=== PATIENT | female | born 1980 ===

== ENCOUNTER 2020-06-25 13:39 | Outpatient (CLI) | payer OTHER ==
[2020-06-25 16:00] LABS: Basophils % (Auto) 0.4 % (0.0-1.8); Eosinophils % (Auto) 0.6 % (0.0-4.3); Hematocrit 31.9 % (30.3-42.9); Hemoglobin 10.7 gm/dl (10.1-14.3); Lymphocytes % (Auto) 19.8 % (13.4-35.0); Mean Corpuscular HGB Conc 34 % (30-34); Mean Corpuscular Volume 91 fl (79-97); Monocytes # (Auto) 0.4 K/mm3 (0.0-0.8); Monocytes % (Auto) 7.3 % (0.0-7.3); Platelet Count 110 K/mm3 (140-440); Red Blood Count 3.53 M/mm3 (3.65-5.03); Red Cell Distribution Width 15.5 % (13.2-15.2)
[2020-06-25 16:19] LABS: Alanine Aminotransferase 7 units/L (7-56); Albumin 3.4 g/dL (3.9-5); Blood Urea Nitrogen 7 mg/dL (7-17); Calcium 9.1 mg/dL (8.4-10.2); Hemolysis Index 25; Uric Acid 4.4 mg/dL (3.5-7.6)
[2020-06-25 16:21] LABS: BUN/Creatinine Ratio 18
[2020-06-25 16:48] LABS: Amphetamine Screen,Urine PRESUMPTIVE NEGATIVE; Benzodiazepines Screen,Urine PRESUMPTIVE NEGATIVE; Bilirubin,Urine NEG (Negative); Blood,Urine NEG (Negative); Cannabinoid Screen,Urine PRESUMPTIVE NEGATIVE; Cocaine Screen,Urine PRESUMPTIVE NEGATIVE; Color,Urine Yellow (Yellow); Methadone Screen,Urine PRESUMPTIVE NEGATIVE; Mucus,Urine 3+ /HPF; Opiate Screen,Urine PRESUMPTIVE NEGATIVE; Protein,Urine <15 mg/dL mg/dL (Negative); Urobilinogen,Urine < 2.0 mg/dL (<2.0)
--- NOTE | 2020-06-25 17:43 | Ultrasound Report ---
ULTRASOUND OBSTETRIC LIMITED ULTRASOUND BIOPHYSICAL PROFILE INDICATION / CLINICAL INFORMATION: BPP. Clinical Gestational Age (GA): 39 weeks. 6 days COMPARISON: None available. FINDINGS: BREATHING MOVEMENT = 2 GROSS BODY MOVEMENT = 2 TONE = 2 QUALITATIVE AMNIOTIC FLUID VOLUME = 2 TOTAL BIOPHYSICAL SCORE = 8/8 HEART RATE (beats per minute): 137 AMNIOTIC FLUID INDEX (cm) = 10.9 (normal = 7-24 cm) PRESENTATION: Cephalic. ADDITIONAL FINDINGS: None. IMPRESSION: 1. Biophysical Score = 8/8 Signer Name: Qamar Perez MD Signed: 06/25/2020 5:39 PM Workstation Name: [id number]
[2020-06-25 17:54] VITALS: BP 113/67
--- NOTE | 2020-06-25 20:01 | Event Note ---
Date: 06/25/20 at 39 weeks, 5 days gestation presents to rule out labor. Gets care at [facility]. 2 previous term vaginal deliveries. Reports mild contractions starting yesterday. Denies vaginal bleeding. Reports a mucous discharge and wants to make sure her water is not leaking. Reports decreased movement today. Mild irregular contractions noted per monitor; patient denies pain. Speculum exam: no pooling, no bleeding noted; thick white discharge noted. Negative fern test. Reactive NST/category 1 heart rate tracing. BPP 8/8. CASH 10.9 cm. Elda pad dry. SVE 1.5/thick/high/posterior. After instructing patient re: how to count movements, patient states she is getting at least 10 movements in 2 hours (observed patient for several hours and had her count movements while in triage area). Patient states she now feels good movement. 2 borderline BPs; rest of BPs WNL. Platelet count 110,000. AST/ALT normal. Urine trace protein. No edema, no headache, no abdominal pain, no visual disturbance, no N/V. Consulted with Dr. Dominguez re: this patient and informed him of all of the above. Discussed BP readings, US results, pt. complaints and all lab results with MD. MD orders to discharge patient home today and have her follow up in OB clinic on Wednesday 06/27. Discussed this plan with patient and patient is in agreement with plan. Reinforced with patient how to count movements. Instructed patient to return right away if any decrease in movement, regular contractions, LOF, VB, headache, swelling, visual disturbance, abdominal pain, or any other problems. Advised pt. to go to [facility] on Saturday06/27/2020 per MD recommendation. Patient voiced understanding of all instructions.
== END 2020-06-25 20:22 | disposition home or self-care (01) ==
LOC: TRG 13:39 → APU 13:41 → TRG 20:22
PROVIDERS: ATTEND Obstetrics & Gynecology
DX: O42.92 Full-term premature rupture of membranes, unspecified as to length of time between rupture and onset of labor (principal); Z3A.39 39 weeks gestation of pregnancy
CPT/HCPCS: 36415; 59025; 76815; 76819; 80053; 80307; 81001; 83615; 84550; 85025

== ENCOUNTER 2020-06-27 19:11 | Inpatient (IN) | payer OTHER ==
[2020-06-27] MEDS ORDERED: BUTORPHANOL 2 MG/1 ML INJ IV PRN (23:20)
[2020-06-27] MEDS ORDERED: TERBUTALINE 1 MG/1 ML INJ SUB-Q PRN (23:20)
[2020-06-27] MEDS ORDERED: ePHEDrine SULFATE 50 MG/1 ML INJ IV PRN (23:20)
[2020-06-27] MEDS ORDERED: AMPICILLIN/NS 2 GM/100 ML 2 GM/100 ML BAG IV ONE (23:20)
[2020-06-27] MEDS ORDERED: LIDOCAINE (2%) 20 MG/1 ML VIAL 20 ML MDV INFILTRATI ONE (23:20)
[2020-06-27] MEDS ORDERED: ACETAMINOPHEN 325 MG TAB PO PRN (23:20)
[2020-06-27] MEDS ORDERED: MINERAL OIL 30 ML ORAL LIQD PO PRN (23:20)
[2020-06-27] MEDS ORDERED: LACTATED RINGERS 1,000 ML IV SCH (23:45)
[2020-06-27] MEDS ORDERED: OXYTOCIN DRIP 30 UNITS/500 ML BAG IV SCH (23:45)
[2020-06-27] MEDS ORDERED: OXYTOCIN 20 UNIT/1000ML DRIP 20 UNITS/1,000 ML BAG IV SCH (23:45)
--- NOTE | 2020-06-28 00:31 | Ultrasound Report ---
LIMITED OB ULTRASOUND WITH BIOPHYSICAL PROFILE HISTORY: Evaluate CASH and well-being. FINDINGS: A single viable intrauterine in the cephalic position has heart tones of 13 2 bpm. Amniotic fluid index is at the lower limits of normal at 7.9 cm. Biophysical profile is normal at 8/8. IMPRESSION: 1. Amniotic fluid index lower limits of normal. 2. Biophysical profile normal. Signer Name: Guillermo Delgado MD Signed: 06/28/2020 12:27 AM Workstation Name: [id number]
[2020-06-28 00:38] LABS: Hematocrit 31.8 % (30.3-42.9); Hemoglobin 11.1 gm/dl (10.1-14.3); Mean Corpuscular HGB Conc 35 % (30-34); Mean Corpuscular Volume 88 fl (79-97); Platelet Count 106 K/mm3 (140-440)
[2020-06-28] MEDS ORDERED: DEXMEDETOMIDINE 200 MCG/2 ML VIAL IV ONE (02:14)
--- NOTE | 2020-06-28 02:32 | Anesthesia Consultation ---
Anesthesia Consult and Med Hx Date of service: 06/28/20 - Airway Anesthetic Teeth Evaluation: Good ROM Head & Neck: Adequate Mental/Hyoid Distance: Adequate Mallampati Class: Class II Intubation Access Assessment: Probably Good - Pulmonary Exam CTA: Yes - Cardiac Exam Cardiac Exam: RRR - Pre-Operative Health Status ASA Pre-Surgery Classification: ASA2 Proposed Anesthetic Plan: Epidural - Pulmonary Hx Asthma: No - Cardiovascular System Hx Hypertension: No - Central Nervous System Hx Seizures: No Hx Psychiatric Problems: No - Endocrine Hx Renal Disease: No Hx Hypothyroidism: No Hx Hyperthyroidism: No - Hematic Hx Anemia: No Hx Sickle Cell Disease: No - Other Systems Hx Alcohol Use: No
--- NOTE | 2020-06-28 02:33 | Progress Note ---
Labor Epidural - Labor Epidural Start Time: 02:20 Stop Time: 02:24 Performed by:: YANNA KRISHNAMURTHY Procedure: Patient is requesting epidural for labor pain. H&P, and labs reviewed. Procedure explained, questions answered, consent obtained. Patient in sitting position with blood pressure cuff and pulse ox on and working. Timeout performed immediately before start of procedure. Sterile betadine prep/drape. 3 mL 1% lidocaine skin wheal at L[3]-L[4]. 18-gauge Touhy epidural needle advanced to [id number] with saline at [7] cm. 27-gauge spinal needle advanced until clear, free-flowing CSF. Intrathecal dexmedetomidine [5] mcg administered and needle removed. Epidural catheter advanced to [12] cm, negative aspiration for blood and csf, negative test dose 3 ml 1.5% lidocaine with epinephrine. Sterile steri-strips and tegaderm applied, followed by tape reinforcement. Patient tolerated procedure well.
[2020-06-28] MEDS ORDERED: NALOXONE 2 MG/2 ML INJ IV PRN (02:34)
[2020-06-28] MEDS ORDERED: ePHEDrine SULFATE 50 MG/1 ML INJ IV PRN (02:34)
[2020-06-28] MEDS: fentaNYL-BUPIV 2 MCG/ML-0.125% 200 MCG/100 ML BAG EPIDURAL SCH ×2 (03:24→11:56)
[2020-06-28] MEDS ORDERED: AMPICILLIN/NS 1 GM/50 ML 1 GM/50 ML BAG IV SCH (05:00)
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
[2020-06-28 10:14] LABS: C-Reactive Protein 0.4 mg/dL (0.00-1.30)
[2020-06-28] MEDS ORDERED: PROMETHAZINE 25 MG RECT SUPP PR PRN (14:35)
[2020-06-28] MEDS ORDERED: WITCH HAZEL/ GLYCERIN PAD TP PRN (14:35)
[2020-06-28] MEDS ORDERED: PROMETHAZINE 25 MG TAB PO PRN (14:35)
[2020-06-28] MEDS ORDERED: ONDANSETRON 4 MG/2 ML INJ IV PRN (14:35)
[2020-06-28] MEDS ORDERED: diphenhydrAMINE 25 MG CAP PO PRN (14:35)
[2020-06-28] MEDS ORDERED: LANOLIN/ZINC/DIMETHICONE (LANSINOH) 7 GM TP PRN (14:35)
[2020-06-28] MEDS ORDERED: MAGNESIUM HYDROXIDE (MOM) ORAL LIQD UDC PO PRN (14:35)
--- NOTE | 2020-06-28 14:46 | Procedure Note ---
OB Delivery Note - Delivery Date of Delivery: 06/28/20 (2709) Surgeon: TONE HUGGINS (CNM) Estimated blood loss: <100cc - Vaginal Delivery presentation: vertex Delivery position: OA (EDWIN) Delivery induction: oxytocin Delivery augmentation: rupture of membranes (SROM, 06/27/2020 @ 0700) Delivery monitor: external FHT, external uterine Route of delivery: Delivery placenta: spontaneous (1344) Delivery cord: nuchal cord (x 1, reduced at perineum), 3 umbilical vessels Episiotomy: none Delivery laceration: 1st degree (hemastasis maintained, no repair required) Delivery comments: of viable, crying female infant, placed directly on maternal abdomen after reduction of nuchal cord x 1 at perineum. Cord double clamped, cut by FOB after cessation of pulsation. Placenta spontaneously delivered, reynolds, disposed per hospital policy. Uterus firm @ U-2. Perineum with 1st degree laceration, no repair required, hemostasis maintained. Mother and baby safe, stable and left in care of RN. - A at 1 minute: 9 at 5 minutes: 9 Gender: Female (Weight: 3619gms (8lbs) 19.5 inches)
--- NOTE | 2020-06-28 19:28 | Post Anesthesia Evaluation ---
- Post Anesthesia Evaluation Patient Participated: Yes Airway Patent: Yes Stable Respiratory Function: Yes Nausea/Vomiting: No Temp > 96.8F: Yes Pain Manageable: Yes Adequeate Hydration: Yes Anesthesia Complications: No Block Receding Appropriately: Yes
[2020-06-29 01:47] LABS: Hematocrit 27.2 % (30.3-42.9); Hemoglobin 9.3 gm/dl (10.1-14.3)
[2020-06-29] MEDS: oxyCODONE /ACETAMINOPHEN 5-325MG TAB PO PRN ×2 (02:54→22:31)
[2020-06-29] MEDS: IBUPROFEN 600 MG TAB PO SCH ×2 (02:55→10:11)
--- NOTE | 2020-06-29 09:56 | Progress Note ---
Assessment and Plan A: PP Day #1 Asymtomatic Anemia P: Follow Routine Orders Infed 100mg IM x 1 dose D/C home in the AM RTO in 6 Weeks Subjective - Subjective Date of service: 06/29/20 Patient reports: appetite normal, voiding normally, pain well controlled, flatus, ambulating normally [place]: doing well, bottle feeding (and ) Objective - Vital Signs Latest vital signs: Vital Signs Temp Pulse Resp BP BP Pulse Ox 06/29/20 08:08 98.0 F 20 131/81 06/29/20 04:00 98.8 F 64 16 118/72 06/29/20 00:30 98.6 F 77 16 104/78 06/28/20 20:07 98.0 F 72 18 123/72 96 06/28/20 16:26 97.9 F 78 16 125/70 96 06/28/20 15:54 75 159/84 06/28/20 15:39 78 151/82 06/28/20 15:24 74 151/71 06/28/20 15:08 67 150/76 06/28/20 14:53 63 147/73 06/28/20 14:39 79 153/79 06/28/20 14:08 76 136/69 06/28/20 13:53 67 132/68 06/28/20 13:39 88 190/89 06/28/20 13:21 74 99 06/28/20 13:16 74 98 06/28/20 13:11 68 97 06/28/20 13:08 71 124/77 06/28/20 13:06 66 98 06/28/20 13:01 64 98 06/28/20 12:56 57 L 99 06/28/20 12:51 59 L 98 06/28/20 12:46 76 98 06/28/20 12:41 65 98 06/28/20 12:38 56 L 138/77 06/28/20 12:36 63 99 06/28/20 12:31 63 98 06/28/20 12:26 66 98 06/28/20 12:21 65 98 06/28/20 12:16 64 99 06/28/20 12:11 64 98 06/28/20 12:08 58 L 137/80 06/28/20 12:06 57 L 98 06/28/20 12:03 64 120/87 06/28/20 12:02 98 F 61 18 120/87 98 06/28/20 12:01 60 98 06/28/20 11:56 55 L 98 06/28/20 11:51 59 L 98 06/28/20 11:46 60 97 06/28/20 11:41 57 L 97 06/28/20 11:38 57 L 124/74 06/28/20 11:36 57 L 96 06/28/20 11:31 58 L 97 06/28/20 11:26 59 L 97 06/28/20 11:21 63 97 06/28/20 11:16 73 97 06/28/20 11:14 54 L 139/69 06/28/20 11:11 57 L 97 06/28/20 11:07 60 118/68 06/28/20 11:06 55 L 97 06/28/20 11:01 96 H 96 06/28/20 10:56 86 96 06/28/20 10:53 68 94 06/28/20 10:51 58 L 95 06/28/20 10:46 64 97 06/28/20 10:41 84 97 06/28/20 10:37 59 L 119/71 06/28/20 10:36 56 L 97 06/28/20 10:35 59 L 94 06/28/20 10:31 74 97 06/28/20 10:26 60 97 06/28/20 10:21 84 97 06/28/20 10:16 57 L 95 06/28/20 10:11 63 97 06/28/20 10:08 56 L 130/75 06/28/20 10:06 63 97 06/28/20 10:01 70 98 06/28/20 09:59 97.9 F 72 17 107/66 107/66 98 06/28/20 09:56 57 L 99 Intake and Output 06/28/20 06/29/20 06/29/20 22:59 06:59 14:59 Intake Total 480 Output Total 800 600 Balance -800 -120 Intake: Oral 480 Output: Urine 800 600 Void 800 600 Other: Total, Intake Amount 240 Total, Output Amount 800 600 # Voids Void 1 1 - Exam Breasts: Present: normal Cardiovascular: Present: Regular rate Lungs: Present: Clear to auscultation, Normal air movement Abdomen: Present: normal appearance, soft, normal bowel sounds Uterus: Present: normal, firm, fundal height below umbilicus Extremities: Present: normal - Labs Labs: Abnormal lab results 06/28/20 06/28/20 06/29/20 Range/Units 09:25 09:25 00:47 Hgb 9.3 L (10.1-14.3) gm/dl Hct 27.2 L (30.3-42.9) % D-Dimer 1238.95 H (0-234) ng/mlDDU Lactate Dehydrogenase 260 H (91-180) units/L
--- NOTE | 2020-06-29 09:58 | Discharge Summary ---
Providers - Providers Date of Admission: 06/28/20 14:35 Date of discharge: 06/30/20 Attending physician: DAINA BULLOCK MD Primary care physician: DAINA BULLOCK MD Hospitalization Reason for admission: rupture of membranes Delivery: Episiotomy: none Laceration: 1st degree Other procedures: none complications: none Discharge diagnosis: IUP at term delivered baby: female Condition at discharge: Good Disposition: DC-01 TO HOME OR SELFCARE Plan - Provider Discharge Summary Activity: routine, no sex for 6 weeks, no heavy lifting 4 weeks, no strenuous exercise Diet: routine Instructions: routine Additional instructions: [] Smoking cessation referral if applicable(refer to patient education folder for contact #) [] Refer to [facility] Booklet Call your doctor immediately for: * Fever > 100.5 * Heavy vaginal bleeding ( >1 pad per hour) * Severe persistent headache * Shortness of breath * Reddened, hot, painful area to leg or breast * Drainage or odor from incision. * Keep incision clean and dry at all times and follow doctor's instructions regarding bathing/showering - Follow up plan Follow up: DAINA BULLOCK MD [Primary Care Provider] - 6 Weeks
[2020-06-29] MEDS ORDERED: IRON DEXTRAN COMPLEX 100 MG/2 ML INJ IM ONE (10:30)
[2020-06-30] MEDS: IBUPROFEN 600 MG TAB PO SCH (10:07)
[2020-06-30 13:15] VITALS: BP 130/83
== END 2020-06-30 13:30 | disposition home or self-care (01) | DRG 807 ==
LOC: TRG 19:11 → APU 19:53 → LD 23:20 → TRG 23:20 → UNDOADMIN 23:20 → LD 06-28 14:35 → OB 06-28 16:54
PROVIDERS: ADMIT Obstetrics & Gynecology; ATTEND Obstetrics & Gynecology
PROC: 10E0XZZ Delivery of Products of Conception, External Approach (ICD-10-PCS; principal; 2020-06-28)
PROC: 3E033VJ Introduction of Other Hormone into Peripheral Vein, Percutaneous Approach (ICD-10-PCS; 2020-06-28)
DX: O69.81X0 Labor and delivery complicated by cord around neck, without compression, not applicable or unspecified (principal); Z37.0 Single live birth; D64.9 Anemia, unspecified; O99.344 Other mental disorders complicating childbirth; F32.9 Major depressive disorder, single episode, unspecified; O70.0 First degree perineal laceration during delivery; Z3A.40 40 weeks gestation of pregnancy
CPT/HCPCS: 36415; 76815; 76819; 82728; 82947; 83615; 85014; 85018; 85027; 85379; 86140; 86592; 86850; 86900; 86901; G0378; J0290; J1750; J2590; J3490; J7120; U0003-CS